=== PATIENT | female | born 1995 | race Two or more races ===

== ENCOUNTER 2018-06-29 00:33 | Emergency (ER) | payer SELFPAY ==
[2018-06-29 00:54] VITALS: BMI 41.0
[2018-06-29 00:55] VITALS: BP 132/82; PULSE 91; RESP 18; TEMP 98.7; O2SAT 100
--- NOTE | 2018-06-29 01:21 | ED PDOC ---
HPI: Psych/Substance Abuse Time Seen by Provider: 06/29/18 01:03 Chief Complaint (Nursing): Alcohol Ingestion Chief Complaint (Provider): Alcohol ingestion History Per: Patient History/Exam Limitations: no limitations Onset/Duration Of Symptoms: Mins (just prior to arrival) Current Symptoms Are (Timing): Better Modifying Factor(s): Alcohol Severity: Moderate Additional Complaint(s): 22 year old female with a past medical history of bipolar disorder is brought into the ED by EMS for alcohol intoxication. Patient reports that she was at her boyfriend's house, when her boyfriend's stepfather called 911 because she was having a loud conversation with him at the time. 911 came to the house and brought them to the ED. Patient denies having any medical or psychiatric complaints, auditory or visual hallucinations, suicidal or homicidal ideations. Patient states that she is upset that she was brought to the ED. PMD: None provided. Past Medical History Reviewed: Historical Data, Nursing Documentation, Vital Signs Vital Signs: Last Vital Signs Temp 98.7 F 06/29/18 00:54 Pulse 91 H 06/29/18 00:54 Resp 18 06/29/18 00:54 BP 132/82 06/29/18 00:54 Pulse Ox 100 06/29/18 00:54 GILBERTO Report Viewed: Yes - Medical History PMH: Bipolar Disorder - Surgical History Surgical History: No Surg Hx - Family History Family History: States: No Known Family Hx - Social History Current smoker - smoking cessation education provided: No Alcohol: Occasional Drugs: Denies - Allergies Allergies/Adverse Reactions: Allergies Allergy/AdvReac Type Severity Reaction Status Date / Time No Known Allergies Allergy Verified 06/29/18 00:54 Review of Systems ROS Statement: Except As Marked, All Systems Reviewed And Found Negative Psych: Negative for: Suicidal ideation, Other (auditory or visual hallucinations, homicidal ideations) Physical Exam - Reviewed Nursing Documentation Reviewed: Yes Vital Signs Reviewed: Yes - Physical Exam Appears: Positive for: Well, Non-toxic, No Acute Distress Head Exam: Positive for: ATRAUMATIC, NORMOCEPHALIC Skin: Positive for: Normal Color, Warm, Dry Eye Exam: Positive for: Normal appearance Cardiovascular/Chest: Positive for: Regular Rate, Rhythm Respiratory: Positive for: Normal Breath Sounds Neurological/Psych: Positive for: Awake, Alert, Oriented (3x), Mood/Affect (crying during exam, otherwise cooperative) - ECG O2 Sat by Pulse Oximetry: 100 (RA) Pulse Ox Interpretation: Normal Medical Decision Making Medical Decision Makin:03 Initial impression: 22 year old female with alcohol intoxication. Patient stable for discharge home with accompaniment of sober democrat. 1:25 Patient's brother in ED, here to accompany patient home. Patient stable for discharge home. ScribeAttestation: Documented byTereza Barnes, acting as a scribe for Jasen Rocha MD. Provider ScribeAttestation: All medical record entries made by the Scribe were at my direction and personally dictated by me. I have reviewed the chart and agree that the record accurately reflects my personal performance of the history, physical exam, medical decision making, and the department course for this patient. I have also personally directed, reviewed, and agree with the discharge instructions and disposition. Disposition - Clinical Impression Clinical Impression: Alcohol-induced mood disorder - Disposition Disposition Time: 01:03 Condition: STABLE Instructions: Effects of Alcohol on Your Health Forms: [employer] (German)
== END 2018-06-29 01:33 | disposition home or self-care (01) ==
LOC: H.ER 00:33
DX: F10.94 Alcohol use, unspecified with alcohol-induced mood disorder (principal); Z86.59 Personal history of other mental and behavioral disorders; Z00.8 Encounter for other general examination